=== PATIENT | male | born 2005 | race Caucasian/White ===

== ENCOUNTER → 2025-05-17 | Emergency (ER) | payer BC ==
[~2025-05-17] VITALS: Ht 182.9 cm; Wt 71.5 kg
[~2025-05-17] MED LIST: PRED10TA PO
[2025-05-17 10:32] VITALS: BP 136/76; PULSE 89; RESP 15; O2SAT 97
[2025-05-17] MEDS: LIDOcaine 1% W/epiNEPHrine 1:100,000 20ml vial SQ STA (11:03)
--- NOTE | 2025-05-17 12:31 | Physician Documentation ---
History of Present Illness ~ Chief Complaint: Laceration Stated Complaint: HAND LACERATION Time Seen by MD: 10:46 Primary Medical Doctor: florencio BOOTH Patient is seen today with complaints of a laceration of his left hand dorsum on the radial side over the 2nd distal metacarpal. Patient states this occurred just prior to arrival while he was working on his trailer in his hand slipped and came across a sharp piece of metal. Patient denies any fevers or chills. He has no other concern or complaint at this time. Tetanus Within 5 Years: Yes Medication Reconciliation Allergies: Coded Allergies: lorazepam (Verified Adverse Reaction, Unknown, 09/19/14) Scheduled Prednisone (Prednisone), 0 PO DAILY Past Medical History Past Medical History: Leukemia Alcohol Use: None Drug Use: none Lives with: Family Lives In: Home Review of Systems Constitutional: Denies: chills, fever, weakness Eyes: Denies: pain, blurred vision ENT: Denies: ear pain, nose pain, throat pain, mouth pain Respiratory: Denies: cough, shortness of breath Cardiovascular: Denies: chest pain, palpitations Gastrointestinal: Denies: abdominal pain, nausea, vomiting Genitourinary: Denies: burning, dysuria Male Genitalia: Denies: penile discharge, testicular pain Neurological: Denies: headache, dizziness Musculoskeletal: Denies: pain, swelling Integumentary: Denies: rash, lesions Allergic/Immunologic: Denies: hives, itching Hematologic/Lymphatic: Denies: no symptoms reported Psychiatric: Denies: depression, anxiety Physical Exam Vital Signs: Temperature: 98.5, Source: Temporal, Heart Rate: 89, Respiratory Rate: 15, BP: 136/76, Pulse Oximetry: 97, Weight: 71.500 Physical Exam General: Awake and Alert, no acute distress. HEENT: Conjunctiva pink, Sclera clear, Mucus Membranes moist. Neck: Supple without masses and tenderness. Resp: Unlabored. Lungs clear to auscultation bilaterally. Heart: Regular Rate and rhythm, normal S1 and S2 without murmur, rub or gallop. Musculoskeletal: Patient on exam has full range of motion actively and passively of digits of left hand. Patient has a 3 cm laceration to the dorsum of left hand just proximal to the 2nd MCP joint radial aspect. There is no active bleeding. Extremities: No cyanosis,clubbing or edema. Skin: Warm and Dry. Procedures Laceration/Wound Repair Laceration : Procedure Note Procedure note: 5 cc of 1% lidocaine with epinephrine was used to achieve local anesthesia of 3 cm laceration to the dorsum of the left hand. Patient tolerated well. Wound was irrigated copiously with normal saline. For horizontal mattress sutures using 5-0 Prolene was used to achieve closure. Patient tolerated well. Nonadherent dressing in place or laceration site. Repair site. Progress Results/Orders Results/Orders Completed Orders - NATE VALLADARES Lidocaine 1% W/Epi 1:100,000 (Xylocaine (05/17/25 10:48) Vital Signs 05/17/25 10:32 Temp 98.5 Pulse 89 Resp 15 B/P (MAP) 136/76 Pulse Ox 97 Medical Decision Making Findings Patient is seen today with complaints of a laceration of his left hand dorsum on the radial side over the 2nd distal metacarpal. Patient states this occurred just prior to arrival while he was working on his trailer in his hand slipped and came across a sharp piece of metal. Patient denies any fevers or chills. He has no other concern or complaint at this time. Patient did have four horizontal mattress sutures placed to achieve closure of laceration of left hand. Patient tolerated well. Patient will follow up in 7- 10 days with his primary care provider or return to the ED for removal of said sutures. Patient will return sooner to the ED with any worsening, concerning or changing symptoms. Departure Disposition: HOME / SELF CARE / HOMELESS Impression: Primary Impression: Laceration Additional Impression: Hand laceration Qualified Codes: S61.412A - Laceration without foreign body of left hand, initial encounter Condition: Improved Discharge Instructions: Laceration Care, Adult, [id number] Additional Instructions: Patient did have four horizontal mattress sutures placed to achieve closure of laceration of left hand. Patient tolerated well. Patient will follow up in 7- 10 days with his primary care provider or return to the ED for removal of said sutures. Patient will return sooner to the ED with any worsening, concerning or changing symptoms. Referrals: NO PRIMARY CARE PROVIDER (PCP) Signature Scribe Signature: No scribe Attestation: no scribe NATE VALLADARES May 17, 2025 12:31
[2025-05-17 12:47] VITALS: TEMP 98.5
== END | disposition home or self-care (01) ==
LOC: ER 10:26
DX: S61.412A Laceration without foreign body of left hand, initial encounter (principal); Z79.899 Other long term (current) drug therapy; Z88.8 Allergy status to other drugs, medicaments and biological substances; W26.8XXA Contact with other sharp object(s), not elsewhere classified, initial encounter; Y93.89 Activity, other specified; Y92.89 Other specified places as the place of occurrence of the external cause; Y99.0 Civilian activity done for income or pay
CPT/HCPCS: 12002; 99282; J7030; A6258; A6449